=== PATIENT | female | born 1995 | race Caucasian/White ===

== ENCOUNTER 2018-03-26 16:57 | Emergency (ER) | payer SELFPAY ==
[~2018-03-26] VITALS: Ht 144.8 cm; Wt 56.4 kg
[2018-03-26 17:43] VITALS: Ht 144.8 cm; Wt 56.4 kg
[2018-03-26] MEDS ORDERED: PRENAVITE1 TAB PO (17:44)
[2018-03-26] MEDS ORDERED: ZOFRAN4 MG PO (17:44)
[2018-03-26 18:11] LABS: BASOPHILS 0.1 % (0-2); EOSINOPHILS 0.1 % (0-7); HEMOGLOBIN 14.8 g/dL (12-16); IMMATURE GRANULOCYTES 0.2 % (0-5); LYMPHOCYTES 11.3 % (15-50); MCHC 34.4 g/dL (31.0-37.0); MCV 84.1 fL (80.0-100.0); MEAN PLATELET VOLUME 9.5 fL (7.4-10.4); MONOCYTES 2.6 % (2-11); NEUTROPHILS 85.7 % (40-80); PLATELET COUNT 224 10x3/uL (130-400); RBC 5.11 10x6/uL (4.00-5.40); RDW 12.9 % (11.5-14.5); WBC 9.6 10x3/uL (4.8-10.8)
[2018-03-26 18:47] LABS: ALBUMIN 3.6 g/dL (3.4-5.0); ALKALINE PHOSPHATASE 64 U/L (46-116); ALT (SGPT) 21 U/L (10-68); BILIRUBIN - TOTAL 0.47 mg/dL (0.2-1.3); CALC OSMOLALITY 272 mosm/kg (275-300); CALCIUM 9.4 mg/dL (8.5-10.1); CARBON DIOXIDE 20.9 mmol/L (21.0-32.0); CHLORIDE - SERUM 103 mmol/L (98-107); CREATININE - SERUM 0.7 mg/dL (0.6-1.3); GLUCOSE 85 mg/dL (74-106); POTASSIUM - SERUM 3.9 mmol/L (3.5-5.1); PROTEIN - SERUM 8.1 g/dL (6.4-8.2); SODIUM 138 mmol/L (136-145); UREA NITROGEN 7 mg/dL (7-18); eGFR NON AFRICAN AMERICAN > 90 mL/min (90-120)
[2018-03-26 19:09] LABS: AMYLASE - SERUM 64 U/L (25-115); HCG - QUANTITATIVE (MATERNAL) 120518 mIU/mL; LIPASE 105 U/L (73-393)
[2018-03-26 19:13] LABS: APPEARANCE CLEAR (CLEAR); BILIRUBIN NEGATIVE (NEGATIVE); COLOR YELLOW (YELLOW); GLUCOSE NEGATIVE (NEGATIVE); KETONE LARGE mg/dL (NEGATIVE); NITRITE NEGATIVE (NEGATIVE); PROTEIN TRACE mg/dL (NEGATIVE); SPECIFIC GRAVITY 1.025 (1.005-1.020); UROBILINOGEN NORMAL (NORMAL)
[2018-03-26 19:14] LABS: BACTERIA MODERATE /hpf (NONE SEEN); EPITHELIAL CELLS 0-5 /hpf (0-5); MUCUS <1+ /lpf (NONE SEEN); RED CELLS - URINE OCC /hpf (0-5); WHITE CELLS - URINE 0-5 /hpf (0-5)
[2018-03-26 22:26] VITALS: BP 131/89
== END 2018-03-26 22:35 | disposition home or self-care (01) ==
LOC: D.ER 16:57
PROVIDERS: Emergency Medicine
DX: O21.9 Vomiting of pregnancy, unspecified (principal); Z3A.12 12 weeks gestation of pregnancy; Z03.79 Encounter for other suspected maternal and fetal conditions ruled out

== ENCOUNTER 2018-03-27 21:21 | Emergency (ER) | payer SELFPAY ==
[~2018-03-27] VITALS: Ht 144.8 cm; Wt 56.4 kg
[~2018-03-27 21:21] MED LIST: PRENAVITE1 TAB PO; ZOFRAN4 MG PO
[2018-03-27 21:48] VITALS: Ht 144.8 cm; Wt 56.4 kg
[2018-03-28 01:31] VITALS: BP 136/91
== END 2018-03-28 01:38 | disposition home or self-care (01) ==
LOC: D.ER 21:21
DX: O21.9 Vomiting of pregnancy, unspecified (principal); Z3A.12 12 weeks gestation of pregnancy; K21.9 Gastro-esophageal reflux disease without esophagitis